=== PATIENT | female | born 1945 | race Caucasian/White ===

== ENCOUNTER 2018-07-26 17:59 | Emergency (ER) | payer MEDICARE, OTHER ==
[~2018-07-26] VITALS: Wt 44.2 kg
[~2018-07-26 17:59] MED LIST: HYDR-4011 PO; IBUP-1542 PO; LEVO750T8 PO; LOSA100T15 PO; ONDA4TAB14 PO
[2018-07-26 18:32] VITALS: BP 108/54; PULSE 87; RESP 20
== END 2018-07-26 23:23 | disposition left against medical advice (07) ==
LOC: E/R 17:59
DX: Z53.21 Procedure and treatment not carried out due to patient leaving prior to being seen by health care provider (principal)